=== PATIENT | male | born 1945 | race Caucasian/White ===

== ENCOUNTER → 2017-10-29 | Outpatient (CLI) | payer OTHER ==
[~2017-10-29] MED LIST: CEFD300C37 PO; LACT1CAP24 PO; METR500T PO
== END | disposition home or self-care (01) ==
LOC: CFH 07:30
PROVIDERS: ATTEND Family Medicine
DX: I25.10 Atherosclerotic heart disease of native coronary artery without angina pectoris (principal); K57.90 Diverticulosis of intestine, part unspecified, without perforation or abscess without bleeding; I71.4 Abdominal aortic aneurysm, without rupture; M47.899 Other spondylosis, site unspecified; R91.1 Solitary pulmonary nodule; Z87.891 Personal history of nicotine dependence
CPT/HCPCS: 71250; 93978

== ENCOUNTER 2018-01-30 08:54 | Observation (INO) | payer OTHER, MEDICARE ==
[~2018-01-30] VITALS: Ht 165.1 cm; Wt 64.3 kg
[2018-01-30] MEDS ORDERED: SODIUM CHLORIDE FLUSH 10ML SYR IVF ONE (09:30)
[2018-01-30] MEDS ORDERED: OXYC30TA74 PO (09:31)
[2018-01-30 10:16] LABS: BASOPHILS # (AUTO) 0.05 x10^3/uL (0-0.1); BASOPHILS % (AUTO) 1 % (0-1); EOSINOPHILS % (AUTO) 3 % (1-7); LYMPHOCYTES # (AUTO) 1.21 x10^3/uL (1-3.4); LYMPHOCYTES % (AUTO) 18 % (22-44); MD NO; MEAN CORPUSCULAR HEMOGLOBIN 31.8 pg (27.5-34.5); MEAN CORPUSCULAR HGB CONC 33.9 g/dL (33.2-36.2); MEAN CORPUSCULAR VOLUME 93.8 fL (81-97); MEAN PLATELET VOLUME 8.8 fL (7.4-10.4); MONOCYTES # (AUTO) 0.55 x10^3/uL (0.2-0.8); MONOCYTES % (AUTO) 8 % (2-9); NEUTROPHILS # (AUTO) 4.79 x10^3/uL (1.8-6.8); NEUTROPHILS % (AUTO) 70 % (42-75); PLATELET COUNT 307 x10^3/uL (130-400); RED BLOOD COUNT 5.25 x10^6/uL (4.38-5.82); RED CELL DISTRIBUTION WIDTH 13.7 % (9.4-14.8)
[2018-01-30 10:20] LABS: INTERNATIONAL NORMALIZED RATIO 1.03 (0.93-1.1); PROTHROMBIN TIME 10.7 Seconds (9.6-11.5)
[2018-01-30 10:23] LABS: ALANINE AMINOTRANSFERASE 34 U/L (12-78); ANION GAP 8 mmol/L (5-15); CALCIUM 8.9 mg/dL (8.5-10.1); CHLORIDE 106 mmol/L (98-107); CREATININE 1.08 mg/dL (0.7-1.3)
[2018-01-30 10:26] LABS: ALKALINE PHOSPHATASE 92 U/L (45-117); BILIRUBIN,TOTAL 1.5 mg/dL (0.2-1.0); TOTAL PROTEIN 7.6 g/dL (6.4-8.2)
[2018-01-30] MEDS ORDERED: ASPIRIN 81 MG TABLET CHEW PO ONE (10:30)
[2018-01-30] MEDS ORDERED: ASPIRIN 81 MG TABLET CHEW ONE (11:02)
[2018-01-30 12:30] VITALS: BP 162/93
[2018-01-30] MEDS ORDERED: TEMAZEPAM 15 MG CAPSULE PO PRN (13:00)
[2018-01-30] MEDS ORDERED: LABETALOL 5MG/ML, 20ML IV PRN (13:00)
[2018-01-30] MEDS ORDERED: ACETAMINOPHEN 650 MG/20.3 ML UDC PO PRN (13:00)
[2018-01-30] MEDS ORDERED: HYDROcodone/APAP 5/325 TABLET PO PRN (13:00)
[2018-01-30] MEDS ORDERED: POLYETHYLENE GLYCOL 17 GM PACKET PO PRN (13:00)
[2018-01-30] MEDS ORDERED: ONDANSETRON 4 MG TABLET PO PRN (13:00)
[2018-01-30 14:59] LABS: HCT (SEDRATE) 49.2 % (39.2-51.8)
[2018-01-30 19:15] VITALS: BP 156/93
[2018-01-30] MEDS ORDERED: ATORVASTATIN 40 MG TABLET PO SCH (21:00)
[2018-01-31 01:43] VITALS: BP 133/85
[2018-01-31 06:30] LABS: CHOL/HDL RATIO 3.3
[2018-01-31 07:00] VITALS: BP 116/70
[2018-01-31] MEDS ORDERED: ASPIRIN 81 MG TABLET CHEW PO/NG SCH (09:00)
[2018-01-31 12:30] VITALS: BP 133/78
[2018-01-31] MEDS ORDERED: ASPI-650 PO (13:49)
== END 2018-01-31 18:11 | disposition home or self-care (01) ==
LOC: ED 10:06 → EDIP 10:30 → OBSVTOIN 10:30 → INTOOBSV 10:30 → 4WST 11:33
PROVIDERS: ADMIT Internal Medicine; ATTEND Internal Medicine
DX: R42 Dizziness and giddiness (principal); G45.9 Transient cerebral ischemic attack, unspecified; H53.9 Unspecified visual disturbance; I16.0 Hypertensive urgency; I10 Essential (primary) hypertension; F12.90 Cannabis use, unspecified, uncomplicated; Z87.891 Personal history of nicotine dependence
CPT/HCPCS: 36415; 70450; 70544; 70551; 71045; 80053; 80061; 85025; 85610; 85651; 85730; 93005; 93306; 93880; 97161; 97165; 99285; G0378

== ENCOUNTER 2018-07-20 08:15 | Inpatient (IN) | payer OTHER, MEDICARE ==
[~2018-07-20] VITALS: Ht 167.6 cm; Wt 67.4 kg
[~2018-07-20 08:15] MED LIST changes: +ASPI-650 PO; +OXYC30TA74 PO
[2018-07-20] MEDS ORDERED: SODIUM CHLORIDE 0.9% 1,000ML IVBOLUS ONE (09:00)
[2018-07-20 09:15] LABS: BASOPHILS # (AUTO) 0.05 x10^3/uL (0-0.1); BASOPHILS % (AUTO) 1 % (0-1); EOSINOPHILS # (AUTO) 0.13 x10^3/uL (0-0.4); EOSINOPHILS % (AUTO) 2 % (1-7); LYMPHOCYTES % (AUTO) 15 % (22-44); MD NO; MEAN CORPUSCULAR HEMOGLOBIN 31.8 pg (27.5-34.5); MEAN CORPUSCULAR HGB CONC 34.3 g/dL (33.2-36.2); MEAN CORPUSCULAR VOLUME 92.6 fL (81-97); MEAN PLATELET VOLUME 8.4 fL (7.4-10.4); MONOCYTES # (AUTO) 0.47 x10^3/uL (0.2-0.8); MONOCYTES % (AUTO) 5 % (2-9); NEUTROPHILS # (AUTO) 7.03 x10^3/uL (1.8-6.8); NEUTROPHILS % (AUTO) 78 % (42-75); PLATELET COUNT 232 x10^3/uL (130-400); RED BLOOD COUNT 3.13 x10^6/uL (4.38-5.82); RED CELL DISTRIBUTION WIDTH 13.3 % (9.4-14.8)
[2018-07-20] MEDS ORDERED: [UNRECOGNIZED DRUG - OTHER] PO (09:18)
[2018-07-20] MEDS ORDERED: IRON TABLET PO (09:18)
[2018-07-20] MEDS ORDERED: MULT1TAB57 PO (09:18)
[2018-07-20 09:28] LABS: ALBUMIN 3.3 g/dL (3.4-5.0); ANION GAP 5 mmol/L (5-15); CALCIUM 7.9 mg/dL (8.5-10.1); CHLORIDE 110 mmol/L (98-107)
[2018-07-20 09:33] LABS: ALANINE AMINOTRANSFERASE 24 U/L (12-78); ALKALINE PHOSPHATASE 68 U/L (45-117); BILIRUBIN,TOTAL 0.6 mg/dL (0.2-1.0); CREATININE 0.91 mg/dL (0.7-1.3); INTERNATIONAL NORMALIZED RATIO 1.04 (0.93-1.1); PROTHROMBIN TIME 10.7 Seconds (9.6-11.5); TOTAL PROTEIN 5.9 g/dL (6.4-8.2)
[2018-07-20] MEDS ORDERED: PANTOPRAZOLE 80 MG in SODIUM CHLORIDE 0.9% 100 ML IV SCH (10:21)
[2018-07-20] MEDS ORDERED: PANTOPRAZOLE 80 MG in SODIUM CHLORIDE 0.9% 50 ML IVPB ONE (10:21)
[2018-07-20 11:10] LABS: % IRON SATURATION 22 % (20-55); IRON LEVEL 70 mcg/dL (65-175); TOTAL IRON BINDING CAPACITY 321 mcg/dL (250-450)
[2018-07-20] MEDS: PANTOPRAZOLE 80 MG in SODIUM CHLORIDE 0.9% 100 ML IV SCH ×2 (11:10→20:14)
[2018-07-20] MEDS ORDERED: HYDROcodone/APAP 5/325 TABLET PO PRN (11:30)
[2018-07-20] MEDS ORDERED: morphine SULFATE 10 MG/ML, 1ML IVPush PRN (11:30)
[2018-07-20] MEDS ORDERED: TEMAZEPAM 15 MG CAPSULE PO PRN (11:30)
[2018-07-20] MEDS ORDERED: ENALAPRILAT 1.25 MG/ML, 2ML IVPush PRN (11:30)
[2018-07-20] MEDS ORDERED: ONDANSETRON 2MG/ML, 2ML IVPush PRN (11:30)
[2018-07-20] MEDS ORDERED: ACETAMINOPHEN 325 MG TABLET PO PRN (11:30)
[2018-07-20 11:31] VITALS: BP 117/70
[2018-07-20 12:13] VITALS: BP 117/70
[2018-07-20 13:18] VITALS: BP 126/80
[2018-07-20 19:51] VITALS: BP 92/62
[2018-07-21] VITALS (9 sets, daily range): BP systolic 92–113; BP diastolic 50–68
[2018-07-21 05:44] LABS: BASOPHILS # (AUTO) 0.03 x10^3/uL (0-0.1); BASOPHILS % (AUTO) 1 % (0-1); EOSINOPHILS # (AUTO) 0.16 x10^3/uL (0-0.4); EOSINOPHILS % (AUTO) 3 % (1-7); LYMPHOCYTES # (AUTO) 1.23 x10^3/uL (1-3.4); LYMPHOCYTES % (AUTO) 26 % (22-44); MD NO; MEAN CORPUSCULAR HEMOGLOBIN 32.5 pg (27.5-34.5); MEAN CORPUSCULAR HGB CONC 34.5 g/dL (33.2-36.2); MEAN CORPUSCULAR VOLUME 94.3 fL (81-97); MEAN PLATELET VOLUME 8.7 fL (7.4-10.4); MONOCYTES % (AUTO) 6 % (2-9); NEUTROPHILS # (AUTO) 3.04 x10^3/uL (1.8-6.8); NEUTROPHILS % (AUTO) 64 % (42-75); PLATELET COUNT 171 x10^3/uL (130-400); RED CELL DISTRIBUTION WIDTH 14.2 % (9.4-14.8)
[2018-07-21 05:57] LABS: CHLORIDE 116 mmol/L (98-107)
[2018-07-21 06:05] LABS: ALANINE AMINOTRANSFERASE 17 U/L (12-78); ALBUMIN 2.5 g/dL (3.4-5.0); ALKALINE PHOSPHATASE 52 U/L (45-117); ANION GAP 6 mmol/L (5-15); BILIRUBIN,TOTAL 0.7 mg/dL (0.2-1.0); CALCIUM 7.6 mg/dL (8.5-10.1); CREATININE 0.78 mg/dL (0.7-1.3); TOTAL PROTEIN 4.7 g/dL (6.4-8.2)
[2018-07-21] MEDS: PANTOPRAZOLE 80 MG in SODIUM CHLORIDE 0.9% 100 ML IV SCH ×2 (06:37→20:06)
[2018-07-21] MEDS ORDERED: FENTANYL PF 100 MCG/2ML ONE (07:30)
[2018-07-21] MEDS ORDERED: MIDAZOLAM 1 MG/ML, 5ML ONE (07:31)
[2018-07-22 03:49] VITALS: BP 116/68
[2018-07-22] MEDS: PANTOPRAZOLE 80 MG in SODIUM CHLORIDE 0.9% 100 ML IV SCH (05:44)
[2018-07-22 08:00] VITALS: BP 121/68
[2018-07-22 12:10] VITALS: BP 123/72
[2018-07-22] MEDS ORDERED: PANT40TA3 PO (14:16)
[2018-07-22] MEDS ORDERED: SUCR1TAB33 PO (14:17)
[2018-07-22] MEDS ORDERED: SIMV20TA PO (14:21)
== END 2018-07-22 15:23 | disposition home or self-care (01) | DRG 378 ==
LOC: ED 09:28 → EDIP 10:21 → 3NE 11:25 → DCLOUNGE 07-22 15:08
PROVIDERS: ADMIT Hospitalist; ATTEND Internal Medicine
PROC: 30233N1 Transfusion of Nonautologous Red Blood Cells into Peripheral Vein, Percutaneous Approach (ICD-10-PCS; 2018-07-21)
PROC: 0DB78ZX Excision of Stomach, Pylorus, Via Natural or Artificial Opening Endoscopic, Diagnostic (ICD-10-PCS; principal; 2018-07-21 08:00)
DX: K26.4 Chronic or unspecified duodenal ulcer with hemorrhage (principal); D62 Acute posthemorrhagic anemia; K25.4 Chronic or unspecified gastric ulcer with hemorrhage; K25.9 Gastric ulcer, unspecified as acute or chronic, without hemorrhage or perforation; Z86.010 Personal history of colon polyps; Z86.73 Personal history of transient ischemic attack (TIA), and cerebral infarction without residual deficits; E78.5 Hyperlipidemia, unspecified; G89.29 Other chronic pain; M54.5 Low back pain; F12.90 Cannabis use, unspecified, uncomplicated; I10 Essential (primary) hypertension; K44.9 Diaphragmatic hernia without obstruction or gangrene; R79.89 Other specified abnormal findings of blood chemistry; Z66 Do not resuscitate; Z87.891 Personal history of nicotine dependence; Z79.82 Long term (current) use of aspirin; Z79.899 Other long term (current) drug therapy
CPT/HCPCS: 36415; 36430; 80053; 83540; 83550; 85014; 85018; 85025; 85610; 85730; 86677; 86850; 86900; 86923; 88305; 96365; 96375; G0378; J2250; J3010; C9113; J7030; P9016

== ENCOUNTER → 2018-10-19 | Outpatient (CLI) | payer MEDICARE, OTHER ==
[~2018-10-19] MED LIST changes: +IRON TABLET PO; +MULT1TAB57 PO; +PANT40TA3 PO; +SIMV20TA PO; +SUCR1TAB33 PO; +[UNRECOGNIZED DRUG - OTHER] PO
== END | disposition home or self-care (01) ==
LOC: CFH 08:06
PROVIDERS: ATTEND Family Medicine
DX: R91.1 Solitary pulmonary nodule (principal); Z87.891 Personal history of nicotine dependence
CPT/HCPCS: 71250

== ENCOUNTER → 2019-10-18 | Outpatient (CLI) | payer OTHER | END | disposition home or self-care (01) | LOC: CFH 11:28 | PROVIDERS: ATTEND Family Medicine | DX: S63.682A Other sprain of left thumb, initial encounter (principal); M25.742 Osteophyte, left hand; M25.741 Osteophyte, right hand; M25.842 Other specified joint disorders, left hand; M25.841 Other specified joint disorders, right hand; X58.XXXA Exposure to other specified factors, initial encounter; Y93.89 Activity, other specified; Y92.89 Other specified places as the place of occurrence of the external cause; Y99.8 Other external cause status ==

== ENCOUNTER 2020-06-14 09:51 | Emergency (ER) | payer OTHER ==
[~2020-06-14] VITALS: Ht 167.6 cm; Wt 66.9 kg
--- NOTE | 2020-06-14 10:10 | NUR ---
rina MARIE note: sling applied to rt arm, pt tolerated well.
--- NOTE | 2020-06-14 10:22 | NUR ---
DIRECTOR OF PUBLIC WORKS: PT TO ROOM FROM [facility].
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
--- NOTE | 2020-06-14 10:52 | NUR ---
PT TAKEN TO XR IN STABLE CONDITION.
[2020-06-14] MEDS ORDERED: OXYcodone/APAP 5/325MG TABLET ONE (11:28)
[2020-06-14 11:30] VITALS: BP 170/99
[2020-06-14] MEDS ORDERED: OXYcodone/APAP 5/325MG TABLET PO ONE (11:30)
== END 2020-06-14 11:52 | disposition home or self-care (01) ==
LOC: ED 11:41
DX: S43.101A Unspecified dislocation of right acromioclavicular joint, initial encounter (principal); M54.6 Pain in thoracic spine; R07.89 Other chest pain; W19.XXXA Unspecified fall, initial encounter; Y93.89 Activity, other specified; Y92.098 Other place in other non-institutional residence as the place of occurrence of the external cause; Y99.8 Other external cause status
CPT/HCPCS: 71045; 72072; 99284